=== PATIENT | female | born 1980 | race Caucasian/White ===

== ENCOUNTER → 2016-07-30 | Outpatient (CLI) | payer OTHER ==
--- NOTE | ~2016-07-30 | CR58 ---
[facility]. [facility] A Service of [facility] & [facility] RADIOLOGY TEXT RESULTS PATIENT: RENY SIDDIQI LOCATION: [facility] : 76 UNIT #: [id number] AGE: [address]: Олег Lyman MD SEX: F ORDER DR: [id number] [place] [id number] O MR#: [id number] Acc #: [id number] NAME: RENY SIDDIQI : 1980 SEX: F STUDY DATE/TIME: 07/30/2016 8:38 UNIT: [facility] ROOM: STUDY DESCRIPTION: CR Cervical Spine 2 or 3 Views Attending Physician: Олег Lyman M.D. Referring Physician: Олег Lyman M.D. Ordering Physician: Олег Lyman M.D. Primary Care Physician: Олег Lyman M.D. MEDICAL IMAGING REPORT This report is preliminary unless electronic signature is present. EXAM Cervical spine, lateral flexion/extension views. HISTORY Radiculopathy. FINDINGS There has been surgery at C5-C6 with a disc prosthesis. There is preserved normal motion throughout the cervical spine, including at C5-C6, and no abnormal motion or prevertebral swelling is seen. Dictated by... Олег Avila M.D. THIS IS AN ELECTRONICALLY VERIFIED REPORT Олег Avila M.D. at 08/01/2016 1:23 PM ASH/kaylee TD: 07/30/2016 13:41 JOB #: [id number] MEDICAL IMAGING REPORT Page 1 of 1
== END | disposition home or self-care (01) ==
LOC: SRAD 08:28
DX: M50.20 Other cervical disc displacement, unspecified cervical region (principal); M54.12 Radiculopathy, cervical region; R20.2 Paresthesia of skin; Z98.890 Other specified postprocedural states
CPT/HCPCS: 72040